=== PATIENT | female | born 1980 | race Caucasian/White ===

== ENCOUNTER 2016-08-26 16:51 | Emergency (ER) | payer OTHER ==
--- NOTE | 2016-08-26 17:32 | EDPHY ---
H & P Stated Complaint: ?allergic reaction,cause unknown;felt throat tightening,used epipen HPI/ROS: HPI CHIEF COMPLAINT: Allergic reaction HISTORY OF PRESENT ILLNESS: This patient very pleasant 35-year-old female she does have significant past medical history for systemic mastocytosis, fibromyalgia, chronic fatigue syndrome, Sangeeta's, PCOS and IBS, she presents to the emergency room after she had sudden onset tingling in her hands, tingling around her mouth, shortness of breath, and abdominal cramping with associated nausea. She tells me this is similar when she has systemic mastocytosis flares. She did give herself an epinephrine shot prior to coming in approximately an hour ago. Since then she has felt better. She denies chest pain or throat closing. Denies active vomiting fever or recent illness. She does tell me that her systemic mastocytosis flares up when he gets very cold out. Past Medical History: Asthma, GERD, IBS, PCOS, lactose intolerance, systemic mastocytosis, fibromyalgia, chronic fatigue syndrome. Social History: Denies use drugs alcohol tobacco products Family History: Noncontributory ROS REVIEW OF SYSTEMS: A comprehensive 10 point review of systems is otherwise negative aside from elements mentioned in the history of present illness. Exam Constitutional appears well, nontoxic triage nursing summary reviewed, vital signs reviewed, awake/alert. Eyes normal conjunctivae and sclera, EOMI, PERRLA. HENT normal inspection, atraumatic, moist mucus membranes, no epistaxis, neck supple/ no meningismus, no raccoon eyes. Respiratory clear to auscultation bilaterally, normal breath sounds, no respiratory distress, no wheezing. Cardiovascular rate normal, regular rhythm, no murmur, no edema, distal pulses normal. Gastrointestinal soft, non-tender, no rebound, no guarding, normal bowel sounds, no distension, no pulsatile mass. Genitourinary no CVA tenderness. Musculoskeletal no midline vertebral tenderness, full range of motion, no calf swelling, no tenderness of extremities, no meningismus, good pulses, neurovascularly intact. Skin pink, warm, & dry, no rash, skin atraumatic. Neurologic awake, alert and oriented x 3, AAOx3, moves all 4 extremities equally, motor intact, sensory intact, CN II-XII intact, normal cerebellar, normal vision, normal speech. Psychiatric normal mood/affect. Heme/Lymph/Immune no lymphadenopathy. Differential Diagnosis: includes but is not limited to in a particular order, mastocytosis flare, allergic reaction, dehydration, electrolyte abnormality, infection, anxiety, panic attack Medical Decision Making: Patient had an IV established obtain blood work, patient had received IV fluid bolus normal saline, IV Benadryl for mastocytosis , and Zofran for nausea will monitor her closely for further signs of further allergic reaction or mastocytosis flare. And we will re-evaluate shortly. Re-evaluation: 1928: re-examination at this time this patient is resting comfortably, there has not been any progression of allergic reaction. She has remained stable here. She has no shortness of breath, throat tightness, nausea vomiting she feels well she is requesting be discharged home. There has been no evidence of anaphylaxis or further reaction. I will allow her to go home she does understand if she gets worsening symptoms tonight she is immediately return to the emergency room this includes nausea vomiting includes shortness of breath wheezing or trouble breathing. Source: Patient - Personal History LMP (Females 10-55): 22-28 Days Ago Current Tetanus Diphtheria and Acellular Pertussis (TDAP): Yes - Medical/Surgical History Other PMH: mastocyctosis (followed at [facility] in [place]) - Social History Smoking Status: Never smoked Constitutional: Initial Vital Signs Temperature (C) 37.2 C 08/26/16 16:58 Heart Rate 100 08/26/16 16:58 Respiratory Rate 18 08/26/16 16:58 Blood Pressure 124/72 H 08/26/16 16:58 O2 Sat (%) 98 08/26/16 16:58 O2 Delivery Mode Room Air Allergies/Adverse Reactions: aspirin Allergy (Severe, Verified 08/26/16 16:58) Anaphylaxis clarithromycin Allergy (Intermediate, Verified 09/29/12 08:36) ibuprofen Allergy (Unknown, Verified 09/29/12 08:36) Home Medications: Medication Instructions Recorded Albuterol [Ventolin Hfa Inhaler] 200 puffs IH 08/26/16 Budesonide/Formoterol 160/4.5 1 puffs IH BID 08/26/16 [Symbicort 160-4.5 Mcg Inh (*)] Ciclesonide [Alvesco] 160 gm IH DAILY 08/26/16 Cromolyn Sodium 200 mg PO QID 08/26/16 Ipratropium [Atrovent Hfa (*)] 12.9 gm IH 08/26/16 Levothyroxine [Synthroid 125 mcg 125 mcg PO DAILY06 08/26/16 (*)] Medical Decision Making - Data Points Laboratory Results: Laboratory Results 08/26/16 17:50 08/26/16 17:50 08/26/16 17:50 WBC 12.52 H 10^3/uL (3.80-9.50) RBC 4.43 10^6/uL (4.18-5.33) Hgb 13.8 g/dL (12.6-16.3) Hct 40.4 % (38.0-47.0) MCV 91.2 fL (81.5-99.8) MCH 31.2 pg (27.9-34.1) MCHC 34.2 g/dL (32.4-36.7) RDW 12.8 % (11.5-15.2) Plt Count 418 H 10^3/uL (150-400) MPV 8.7 fL (8.7-11.7) Neut % (Auto) 78.6 H % (39.3-74.2) Lymph % (Auto) 13.6 L % (15.0-45.0) Johnson % (Auto) 6.8 % (4.5-13.0) Eos % (Auto) 0.2 L % (0.6-7.6) Baso % (Auto) 0.2 L % (0.3-1.7) Nucleat RBC Rel Count 0.0 % (0.0-0.2) Absolute Neuts (auto) 9.85 H 10^3/uL (1.70-6.50) Absolute Lymphs (auto) 1.70 10^3/uL (1.00-3.00) Absolute Monos (auto) 0.85 H 10^3/uL (0.30-0.80) Absolute Eos (auto) 0.02 L 10^3/uL (0.03-0.40) Absolute Basos (auto) 0.02 10^3/uL (0.02-0.10) Absolute Nucleated RBC 0.00 10^3/uL (0-0.01) Immature Gran % 0.6 % (0.0-1.1) Immature Gran # 0.08 10^3/uL (0.00-0.10) Sodium 139 mEq/L (134-144) Potassium 3.8 mEq/L (3.5-5.2) Chloride 105 mEq/L (97-110) Carbon Dioxide 24 mEq/l (22-31) Anion Gap 10 mEq/L (8-16) BUN 10 mg/dL (7-23) Creatinine 0.6 mg/dL (0.6-1.0) Estimated GFR > 60 Glucose 91 mg/dL (70-100) Calcium 9.6 mg/dL (8.5-10.4) Total Bilirubin 0.8 mg/dL (0.1-1.4) Conjugated Bilirubin 0.4 mg/dL (0.0-0.5) Unconjugated Bilirubin 0.4 mg/dL (0.0-1.1) AST 20 IU/L (14-46) ALT 38 IU/L (9-52) Alkaline Phosphatase 45 IU/L (38-126) Total Protein 7.0 g/dL (6.3-8.2) Albumin 4.4 g/dL (3.5-5.0) Lipase 71.0 IU/L (23-300) Beta HCG, Qual NEGATIVE Medications Given: Discontinued Medications Diphenhydramine HCl (Benadryl Injection) 25 mg IVP EDNOW ONE Stop: 08/26/16 17:46 Last Admin: 08/26/16 18:00 Dose: 25 mg Sodium Chloride (Ns) 1,000 mls @ 0 mls/hr IV ONCE ONE PRN Reason: Wide Open Stop: 08/26/16 17:45 Last Admin: 08/26/16 17:59 Dose: 1,000 mls Ondansetron HCl (Zofran) 4 mg IVP EDNOW ONE Stop: 08/26/16 17:45 Last Admin: 08/26/16 18:00 Dose: 4 mg Departure - Departure Disposition: Home, Routine, Self-Care Clinical Impression: Allergic reaction Qualifiers: Encounter type: initial encounter Qualifier Code: (T78.40XA) Allergy, unspecified, initial encounter Condition: Good Instructions: Allergies (ED) Additional Instructions: 1.Stay well hydrated, return to the emergency room if he develops any worsening symptoms questions or concerns. This includes shortness of breath, trouble swallowing, nausea vomiting. Please follow up with her specialist for your systemic Macrocytosis. Referrals: Rui Bah MD [Primary Care Provider] - As per Instructions
[2016-08-26] MEDS ORDERED: NS 1,000 ML IV ONE (17:44)
[2016-08-26] MEDS ORDERED: ONDANSETRON 4 MG/2 ML VIAL IVP ONE (17:44)
[2016-08-26 17:49] VITALS: RESP 16
[2016-08-26 18:15] LABS: % IMMATURE GRANULYOCYTES 0.6 % (0.0-1.1); ABSOLUTE IMMATURE GRANULOCYTES 0.08 10^3/uL (0.00-0.10); ADD DIFF? NO; ADD MORPH? NO; ADD SCAN? NO; ATYPICAL LYMPHOCYTE FLAG 0 (0-99); FRAGMENT RBC FLAG 0 (0-99); HEMATOCRIT 40.4 % (38.0-47.0); HEMOGLOBIN 13.8 g/dL (12.6-16.3); LEFT SHIFT FLG 0 (0-99); LIPEMIA HEMOLYSIS FLAG 90 (0-99); MEAN CELL HEMOGLOBIN 31.2 pg (27.9-34.1); MEAN CELL HEMOGLOBIN CONCENTR. 34.2 g/dL (32.4-36.7); MEAN CELL VOLUME 91.2 fL (81.5-99.8); MEAN PLATELET VOLUME 8.7 fL (8.7-11.7); PLATELET CLUMPS FLAG 0 (0-99); PLATELET COUNT 418 10^3/uL (150-400); RED BLOOD CELL COUNT 4.43 10^6/uL (4.18-5.33); RED CELL DISTRIBUTION WIDTH 12.8 % (11.5-15.2)
[2016-08-26 18:30] LABS: ALANINE AMINOTRANSFERASE 38 IU/L (9-52); ALBUMIN 4.4 g/dL (3.5-5.0); ALKALINE PHOSPHATASE 45 IU/L (38-126); ANION GAP 10 mEq/L (8-16); ASPARTATE AMINOTRANSFERASE 20 IU/L (14-46); BILIRUBIN,TOTAL 0.8 mg/dL (0.1-1.4); BILIRUBIN-CONJUGATED 0.4 mg/dL (0.0-0.5); BILIRUBIN-UNCONJUGATED 0.4 mg/dL (0.0-1.1); CALCIUM 9.6 mg/dL (8.5-10.4); CARBON DIOXIDE 24 mEq/l (22-31); CHLORIDE 105 mEq/L (97-110); CREATININE 0.6 mg/dL (0.6-1.0); GLOMERULAR FILTRATION RATE > 60; GLUCOSE 91 mg/dL (70-100); POTASSIUM 3.8 mEq/L (3.5-5.2); SODIUM 139 mEq/L (134-144)
[2016-08-26 19:39] VITALS: BP 114/75; PULSE 99; TEMP 98.1; O2SAT 96
== END 2016-08-26 19:38 | disposition home or self-care (01) ==
DX: T78.40XA Allergy, unspecified, initial encounter (principal); J45.909 Unspecified asthma, uncomplicated
CPT/HCPCS: 96374; J1200; J2405

== ENCOUNTER 2016-09-16 17:01 | Emergency (ER) | payer OTHER ==
[2016-09-16 17:13] VITALS: RESP 18; TEMP 98.1
--- NOTE | 2016-09-16 17:58 | EDPHY ---
H & P Stated Complaint: Throat feels tight since yesterday;abd cramps/nausea;in nad Time Seen by Provider: 09/16/16 17:18 HPI/ROS: CHIEF COMPLAINT: "I'm in anaphylaxis" HISTORY OF PRESENT ILLNESS: pleasant 35-year-old female past medical history significant for systemic mastocytosis, fibromyalgia, chronic fatigue syndrome, Sangeeta's, PCOS, IBS, in the emergency department stating that last evening she had started to experience anaphylaxis. This was manifest exacerbated by the previous night where she slept poorly and has been in under increasing stress which will cause a mastocytosis flare. She did not use her EpiPen last evening stating that she fell sleep. She notes the continued symptoms today which include bladder spasm, chest pain, dyspnea, Nausea with no vomiting, abdominal pain, throat spasm. This feels similar to when she has systemic mastocytosis flares. She is on daily methylprednisolone. Spoke with the provider at [facility] recommend she seek medical attention PRIMARY CARE PROVIDER: [facility] REVIEW OF SYSTEMS: A ten point review of systems was performed and is negative with the exception of the items mentioned in the HPI PAST MEDICAL & SURGICAL HISTORY: Systemic mastocytosis. Fibromyalgia. Chronic fatigue syndrome. Hashimotos. PCOS. IBS. SOCIAL HISTORY: nonsmoker PHYSICAL EXAM (Prior to examination, patient consented to physical exam, hands were washed and my usual and customary physical exam procedures followed) 1) GENERAL: Well-developed, well-nourished, alert and oriented. Appears to be in no acute distress. She is observed ambulating. She is smiling, shakes my hand, able speak full sentences, no signs of respiratory distress whatsoever. 2) HEAD: Normocephalic, atraumatic 3) HEENT: Pupils equal, round, reactive to light bilaterally. Sclera anicteric. Nasopharynx, oropharynx, clear, no lesions. No tonsillar enlargement. No tonsillar exudate. No trismus no drooling. No hot potato voice. Ears bilaterally with normal tympanic membranes. 4) NECK: Full range of motion, no meningeal signs. 5) LUNGS: Clear auscultation bilaterally, no wheezes, no rhonchi, no retractions. 6) HEART: Regular rate and rhythm, no murmur, no heave, no gallop. 7) ABDOMEN: No guarding, no rebound, no focal tenderness, negative McBurney's, negative Oliver's, negative Rovsing's, negative peritoneal sign, 8) MUSCULOSKELETAL: Moving all extremities, no focal areas of tenderness, no obvious trauma. No peripheral edema or discoloration. 9) BACK: No CVA tenderness, no midline vertebral tenderness, no fluctuance, no step-off, no obvious trauma, no visual or palpable abnormality. 10) SKIN: No rash, no petechiae. No urticaria. No rash. 11) Psychiatric: Patient is oriented X 3, there is no agitation. DIFFERENTIAL DIAGNOSIS: in no particular order including but not limited to mastocytosis flare, anaphylaxis, urticaria - Personal History LMP (Females 10-55): 8-14 Days Ago Current Tetanus Diphtheria and Acellular Pertussis (TDAP): Yes - Medical/Surgical History Other PMH: mastocyctosis (followed at [facility] in [place]). fibromyalgia, chronic fatigue syndrome, Hashimotos,. IBS,GERD, lactose intolerance - Social History Smoking Status: Never smoked Constitutional: Initial Vital Signs Temperature (C) 36.7 C 09/16/16 17:10 Heart Rate 84 09/16/16 17:10 Respiratory Rate 18 09/16/16 17:10 Blood Pressure 114/75 09/16/16 17:10 O2 Sat (%) 99 09/16/16 17:10 O2 Delivery Mode Room Air Allergies/Adverse Reactions: aspirin Allergy (Severe, Verified 09/16/16 17:10) Anaphylaxis clarithromycin Allergy (Intermediate, Verified 09/16/16 17:10) ibuprofen Allergy (Unknown, Verified 09/16/16 17:10) Home Medications: Medication Instructions Recorded Albuterol [Ventolin Hfa Inhaler] 200 puffs IH 08/26/16 Budesonide/Formoterol 160/4.5 1 puffs IH BID 08/26/16 [Symbicort 160-4.5 Mcg Inh (*)] Ciclesonide [Alvesco] 160 gm IH DAILY 08/26/16 Cromolyn Sodium 200 mg PO QID 08/26/16 Ipratropium [Atrovent Hfa (*)] 12.9 gm IH 08/26/16 Levothyroxine [Synthroid 125 mcg 125 mcg PO DAILY06 08/26/16 (*)] Ciclesonide [Alvesco] 80 gm IH DAILY 09/16/16 methylPREDNISolone [Medrol 4mg (*)] 16 mg PO 09/16/16 Medical Decision Making ED Course/Re-evaluation: 5:50 p.m.: I have reviewed her old medical records. 7:15 p.m.: Patient re-evaluated after being given Solu-Medrol, H1 H2 blockers. At this time she is sleeping, easily woken. States that she is feeling better overall. She does note subjective sensation of throat swelling. On exam she has a normal voice, no hot potato voice, no trismus no drooling, no tonsillar glossal enlargement. No red flags on objective examination findings. We discussed the indications risks benefits of providing epinephrine. given that she objectively appears well and is feeling overall improvement I am hesitant to provided dose of epinephrine at this time as as it is not completely clear to me that the benefits outweigh the risks. I discussed this with the patient she is in agreement. She has an EpiPen prescription at home and I have recommend she have a low threshold for using that should she develop return of symptoms. She has been provided my usual and customary allergic reaction precautions and recommend she contact and see her provider [facility]. - Data Points Laboratory Results: Laboratory Results 09/16/16 17:00 09/16/16 17:00 09/16/16 09/16/16 09/16/16 17:00 17:00 17:00 WBC 9.82 10^3/uL H 10^3/uL (3.80-9.50) RBC 4.39 10^6/uL 10^6/uL (4.18-5.33) Hgb 14.1 g/dL g/dL (12.6-16.3) Hct 42.2 % % (38.0-47.0) MCV 96.1 fL fL (81.5-99.8) MCH 32.1 pg pg (27.9-34.1) MCHC 33.4 g/dL g/dL (32.4-36.7) RDW 12.8 % % (11.5-15.2) Plt Count 404 10^3/uL H 10^3/uL (150-400) MPV 8.7 fL fL (8.7-11.7) Neut % (Auto) 75.5 % H % (39.3-74.2) Lymph % (Auto) 16.9 % % (15.0-45.0) [place] % (Auto) 6.7 % % (4.5-13.0) Eos % (Auto) 0.1 % L % (0.6-7.6) Baso % (Auto) 0.1 % L % (0.3-1.7) Nucleat RBC Rel Count 0.0 % % (0.0-0.2) Absolute Neuts (auto) 7.41 10^3/uL H 10^3/uL (1.70-6.50) Absolute Lymphs (auto) 1.66 10^3/uL 10^3/uL (1.00-3.00) Absolute Monos (auto) 0.66 10^3/uL 10^3/uL (0.30-0.80) Absolute Eos (auto) 0.01 10^3/uL L 10^3/uL (0.03-0.40) Absolute Basos (auto) 0.01 10^3/uL L 10^3/uL (0.02-0.10) Absolute Nucleated RBC 0.00 10^3/uL 10^3/uL (0-0.01) Immature Gran % 0.7 % % (0.0-1.1) Immature Gran # 0.07 10^3/uL 10^3/uL (0.00-0.10) Sodium 139 mEq/L mEq/L (134-144) Potassium 4.1 mEq/L mEq/L (3.5-5.2) Chloride 101 mEq/L mEq/L (97-110) Carbon Dioxide 30 mEq/l mEq/l (22-31) Anion Gap 8 mEq/L mEq/L (8-16) BUN 9 mg/dL mg/dL (7-23) Creatinine 0.6 mg/dL mg/dL (0.6-1.0) Estimated GFR > 60 Glucose 78 mg/dL mg/dL (70-100) Calcium 9.0 mg/dL mg/dL (8.5-10.4) Beta HCG, Qual NEGATIVE Medications Given: Discontinued Medications Diphenhydramine HCl (Benadryl Injection) 25 mg IVP EDNOW ONE Stop: 09/16/16 18:00 Last Admin: 09/16/16 18:21 Dose: 25 mg Famotidine (Pepcid) 20 mg IVP EDNOW ONE Stop: 09/16/16 18:29 Last Admin: 09/16/16 18:30 Dose: 20 mg Sodium Chloride (Ns) 1,000 mls @ 0 mls/hr IV ONCE ONE PRN Reason: Wide Open Stop: 09/16/16 18:00 Last Admin: 09/16/16 18:21 Dose: 1,000 mls Methylprednisolone Sodium Succinate (Solu-Medrol) 125 mg IVP EDNOW ONE Stop: 09/16/16 18:01 Last Admin: 09/16/16 18:21 Dose: 125 mg Ondansetron HCl (Zofran) 4 mg IVP EDNOW ONE Stop: 09/16/16 18:00 Last Admin: 09/16/16 18:22 Dose: 4 mg Ranitidine HCl (Zantac) 50 mg IVP EDNOW ONE Stop: 09/16/16 18:00 Last Admin: 09/16/16 18:22 Dose: Not Given Departure - Departure Disposition: Home, Routine, Self-Care Clinical Impression: Mastocytosis Condition: Good Instructions: Allergies (ED), General Allergic Reaction (ED) Additional Instructions: If you develop allergy reaction symptoms use your EpiPen and call 911. Referrals: Rui Bah MD [Primary Care Provider] - 2-3 days, call for appt. Contact, your provider [facility] tomorrow [Other] - As per Instructions
[2016-09-16] MEDS ORDERED: ONDANSETRON 4 MG/2 ML VIAL IVP ONE (17:59)
[2016-09-16] MEDS ORDERED: RANITIDINE 50 MG/2 ML VIAL IVP ONE (17:59)
[2016-09-16] MEDS ORDERED: NS 1,000 ML IV ONE (17:59)
[2016-09-16] MEDS ORDERED: methylPREDNISolone SOD SUCC 125 MG/2 ML VIAL IVP ONE (18:00)
[2016-09-16] MEDS ORDERED: FAMOTIDINE 20 MG/2 ML SDV ONE (18:13)
[2016-09-16 18:27] LABS: % IMMATURE GRANULYOCYTES 0.7 % (0.0-1.1); ABSOLUTE IMMATURE GRANULOCYTES 0.07 10^3/uL (0.00-0.10); ADD DIFF? NO; ADD MORPH? NO; ADD SCAN? NO; ATYPICAL LYMPHOCYTE FLAG 0 (0-99); FRAGMENT RBC FLAG 0 (0-99); HEMATOCRIT 42.2 % (38.0-47.0); HEMOGLOBIN 14.1 g/dL (12.6-16.3); LEFT SHIFT FLG 0 (0-99); LIPEMIA HEMOLYSIS FLAG 80 (0-99); MEAN CELL HEMOGLOBIN 32.1 pg (27.9-34.1); MEAN CELL HEMOGLOBIN CONCENTR. 33.4 g/dL (32.4-36.7); MEAN CELL VOLUME 96.1 fL (81.5-99.8); MEAN PLATELET VOLUME 8.7 fL (8.7-11.7); PLATELET CLUMPS FLAG 0 (0-99); PLATELET COUNT 404 10^3/uL (150-400); RED BLOOD CELL COUNT 4.39 10^6/uL (4.18-5.33); RED CELL DISTRIBUTION WIDTH 12.8 % (11.5-15.2)
[2016-09-16] MEDS ORDERED: FAMOTIDINE 20 MG/2 ML SDV IVP ONE (18:28)
[2016-09-16 18:31] LABS: ANION GAP 8 mEq/L (8-16); CARBON DIOXIDE 30 mEq/l (22-31); CHLORIDE 101 mEq/L (97-110); CREATININE 0.6 mg/dL (0.6-1.0); GLOMERULAR FILTRATION RATE > 60; GLUCOSE 78 mg/dL (70-100); POTASSIUM 4.1 mEq/L (3.5-5.2); SODIUM 139 mEq/L (134-144)
[2016-09-16 19:37] VITALS: BP 102/62; PULSE 72; O2SAT 96
== END 2016-09-16 19:35 | disposition home or self-care (01) ==
DX: D47.0 Mast cell neoplasms of uncertain behavior (principal)
CPT/HCPCS: 96374; J1200; J2405; J2780

== ENCOUNTER 2016-10-27 00:30 | Emergency (ER) | payer OTHER ==
[2016-10-27 00:37] VITALS: TEMP 98.2
[2016-10-27] MEDS ORDERED: ONDANSETRON 4 MG/2 ML VIAL ONE (00:50)
[2016-10-27] MEDS ORDERED: FAMOTIDINE 20 MG/NACL 50 ML IV ONE (02:06)
[2016-10-27] MEDS ORDERED: methylPREDNISolone SOD SUCC 125 MG/2 ML VIAL IVP ONE (02:07)
--- NOTE | 2016-10-27 02:12 | EDPHY ---
H & P Stated Complaint: SYSTEMIC MASTOCYTOSIS REACTION PER PT. 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 She describes tingling of her mouth, tongue, fingers and toes. She reports chest pain with palpitations associated with nausea. She felt some wheezing as well. She administered her home oxygen tonight when her symptoms became worse and used her EpiPen. She did not feel much better, so comes into the hospital. She has also been taking Mariam and Benadryl at home over the last few days. She has a history of systemic mastocytosis which was diagnosed about a year ago based on bone marrow biopsy. She is followed at [facility] for this.. REVIEW OF SYSTEMS Constitutional: No fever, no chills. Eyes: No discharge. ENT: No sore throat. Cardiovascular: No chest pain, no palpitations. Respiratory: No cough, no shortness of breath. Gastrointestinal: No abdominal pain, no vomiting. Genitourinary: No hematuria. Musculoskeletal: No back pain. Skin: No rashes. Neurological: No headache. PMHx: Systemic mastocytosis, chronic fatigue syndrome, fibromyalgia, IBS Soc Hx: Lives at home with her and kid PHYSICAL General Appearance: Alert, no distress Eyes: Pupils equal and round no pallor or injection ENT, Mouth: Mucous membranes moist Respiratory: There are no retractions, lungs are clear to auscultation Cardiovascular: Regular rate and rhythm Gastrointestinal: Abdomen is soft and non-tender, no masses, bowel sounds normal Neurological: A&O, moves all extremities Skin: Warm and dry, no rashes Musculoskeletal: Neck is supple non tender Extremities: symmetrical, full range of motion Psychiatric: Patient is oriented X 3, there is no agitation Source: Patient Exam Limitations: No limitations - Personal History Current Tetanus/Diphtheria Vaccine: Yes Current Tetanus Diphtheria and Acellular Pertussis (TDAP): Yes - Medical/Surgical History Hx Asthma: No Hx Chronic Respiratory Disease: No Hx Diabetes: No Hx Cardiac Disease: No Hx Renal Disease: No Hx Cirrhosis: No Hx Alcoholism: No Hx HIV/AIDS: No Hx Splenectomy or Spleen Trauma: No Other PMH: mastocyctosis (followed at [facility] in [place]). fibromyalgia, chronic fatigue syndrome, Hashimotos,. IBS,GERD, lactose intolerance - Social History Smoking Status: Never smoked Constitutional: Initial Vital Signs Temperature (C) 36.8 C 10/27/16 00:31 Heart Rate 112 H 10/27/16 00:31 Respiratory Rate 18 10/27/16 00:31 Blood Pressure 131/82 H 10/27/16 00:31 O2 Sat (%) 95 10/27/16 00:31 O2 Delivery Mode Room Air Allergies/Adverse Reactions: aspirin Allergy (Severe, Verified 10/27/16 00:36) Anaphylaxis clarithromycin Allergy (Intermediate, Verified 10/27/16 00:36) ibuprofen Allergy (Unknown, Verified 10/27/16 00:36) Home Medications: Medication Instructions Recorded Albuterol [Ventolin Hfa Inhaler] 200 puffs IH 08/26/16 Budesonide/Formoterol 160/4.5 1 puffs IH BID 08/26/16 [Symbicort 160-4.5 Mcg Inh (*)] Ciclesonide [Alvesco] 160 gm IH DAILY 08/26/16 Cromolyn Sodium 200 mg PO QID 08/26/16 Ipratropium [Atrovent Hfa (*)] 12.9 gm IH 08/26/16 Levothyroxine [Synthroid 125 mcg 125 mcg PO DAILY06 08/26/16 (*)] Ciclesonide [Alvesco] 80 gm IH DAILY 09/16/16 methylPREDNISolone [Medrol 4mg (*)] 16 mg PO 09/16/16 Medical Decision Making Differential Diagnosis: This is a 35-year-old female with a diagnosis of systemic mastocytosis based on bone marrow biopsy, followed at [facility], who presents from home with concern for anaphylaxis after several days of symptoms which became worse tonight. Her predominant symptoms are tingling sensation throughout her body, palpitations, nausea. On exam, she has normal vital signs, has no urticaria or skin lesions, has no posterior pharyngeal edema or tongue swelling , has no wheezing on exam and really looks quite well. Given her report of the symptoms, I will treat her with Solu-Medrol, H1 and H2 blockers. She received these medications and she was in the emergency room on February 22nd, and these helped her symptoms significantly. In the emergency room, the patient received the above medications and felt better. She was observed for several hours with no recurrence of her symptoms. She will be discharged from the emergency room in good condition. - Data Points Medications Given: Discontinued Medications Diphenhydramine HCl (Benadryl Injection) 25 mg IVP EDNOW ONE Stop: 10/27/16 02:08 Last Admin: 10/27/16 02:28 Dose: 25 mg Famotidine/Sodium Chloride (Pepcid 20 Mg (Premix)) 50 mls @ 200 mls/hr IV EDNOW ONE Stop: 10/27/16 02:20 Last Admin: 10/27/16 02:28 Dose: 50 mls Methylprednisolone Sodium Succinate (Solu-Medrol) 125 mg IVP EDNOW ONE Stop: 10/27/16 02:08 Last Admin: 10/27/16 02:29 Dose: 125 mg Departure - Departure Disposition: Home, Routine, Self-Care Clinical Impression: Systemic mastocytosis Condition: Good Instructions: Anaphylaxis (ED) Additional Instructions: Please return to the emergency room if your worse in any way. Referrals: Rui Bah MD [Primary Care Provider] - As per Instructions
[2016-10-27] MEDS ORDERED: methylPREDNISolone SOD SUCC 125 MG/2 ML VIAL ONE (02:17)
[2016-10-27 02:46] VITALS: O2SAT 96
[2016-10-27 04:37] VITALS: BP 118/64; PULSE 81; RESP 16
== END 2016-10-27 04:37 | disposition home or self-care (01) ==
DX: D47.0 Mast cell neoplasms of uncertain behavior (principal)
CPT/HCPCS: 96374; J1200; J2405

== ENCOUNTER → 2017-09-07 | Outpatient (CLI) | payer OTHER | LOC: FIMAGING 16:39 | PROVIDERS: ATTEND Allergy & Immunology Allergy | DX: R05 Cough (principal); R07.9 Chest pain, unspecified ==

== ENCOUNTER 2017-10-05 13:30 | Emergency (ER) | payer OTHER ==
[2017-10-05 13:40] VITALS: RESP 18
--- NOTE | 2017-10-05 13:55 | CPEKG ---
Heart Rate: 84 RR Interval: 714 P-R Interval: 128 QRSD Interval: 78 QT Interval: 348 QTC Interval: 412 P Carmichaels: 64 QRS Carmichaels: 50 T Wave Carmichaels: 52 EKG Severity - NORMAL ECG - EKG Impression: SINUS RHYTHM Electronically Signed By: Cornelio Kidd 05-Oct-2017 15:56:09
--- NOTE | 2017-10-05 14:13 | EDPHY ---
H & P Stated Complaint: since pt had diff breathing, hx of systemic mastocytosis Time Seen by Provider: 10/05/17 13:52 HPI/ROS: CHIEF COMPLAINT: Chest pain, multiple symptoms which patient reports are from an exacerbation of her mast cell disorder HISTORY OF PRESENT ILLNESS: The patient is referred to the ED for evaluation of chest pain. The patient reportedly has a history of mast cell dysfunction is on a number of outpatient medications. She reports that she has been having symptoms of "anaphylaxis" since . She has been using Solu-Medrol, Symbicort, duo nebs, cromolyn, Atrovent and Ventolin at home. The patient is also administered an EpiPen. She is using Zofran and supplemental oxygen at night. Patient reports she has had a several day history of some sharp left chest pain. She denies any asymmetric calf pain or swelling. She denies fever or productive cough. The patient denies any history of fall or trauma. She denies additional acute complaints. REVIEW OF SYSTEMS: A comprehensive 10 point review of systems is otherwise negative aside from elements mentioned in the history of present illness. Source: Patient - Personal History LMP (Females 10-55): 15-21 Days Ago Current Tetanus Diphtheria and Acellular Pertussis (TDAP): Yes - Medical/Surgical History Hx Asthma: No Hx Chronic Respiratory Disease: No Hx Diabetes: No Hx Cardiac Disease: No Hx Renal Disease: No Hx Cirrhosis: No Hx Alcoholism: No Hx HIV/AIDS: No Hx Splenectomy or Spleen Trauma: No Other PMH: mastocyctosis (followed at [facility] in [place]). fibromyalgia, chronic fatigue syndrome, Hashimotos,. IBS,GERD, lactose intolerance - Social History Smoking Status: Never smoked - Physical Exam Exam: General Appearance: Alert, no distress Eyes: Pupils equal and round no pallor or injection ENT, Mouth: Mucous membranes moist Respiratory: There are no retractions, lungs are clear to auscultation Cardiovascular: Regular rate and rhythm Gastrointestinal: Abdomen is soft and nontender, no masses, bowel sounds normal Neurological: 5/5 strength noted all 4 extremities Skin: Warm and dry, no rashes Musculoskeletal: Neck is supple nontender Extremities: symmetrical, full range of motion Constitutional: Initial Vital Signs Temperature (C) 37.1 C 10/05/17 13:37 Heart Rate 103 H 10/05/17 13:37 Respiratory Rate 18 10/05/17 13:37 Blood Pressure 125/97 H 10/05/17 13:37 O2 Sat (%) 96 10/05/17 13:37 O2 Delivery Mode Room Air Allergies/Adverse Reactions: aspirin Allergy (Severe, Verified 10/27/16 00:36) Anaphylaxis clarithromycin Allergy (Intermediate, Verified 10/27/16 00:36) ibuprofen Allergy (Unknown, Verified 10/27/16 00:36) cocoa [chocolate] Allergy (Verified 10/05/17 13:34) kirit Allergy (Verified 10/05/17 13:34) Home Medications: Medication Instructions Recorded Albuterol [Ventolin Hfa Inhaler] 200 puffs IH 08/26/16 Budesonide/Formoterol 160/4.5 1 puffs IH BID 08/26/16 [Symbicort 160-4.5 Mcg Inh (*)] Ciclesonide [Alvesco] 160 gm IH DAILY 08/26/16 Cromolyn Sodium 200 mg PO QID 08/26/16 Ipratropium [Atrovent Hfa (*)] 12.9 gm IH 08/26/16 Levothyroxine [Synthroid 125 mcg 125 mcg PO DAILY06 08/26/16 (*)] Ciclesonide [Alvesco] 80 gm IH DAILY 09/16/16 methylPREDNISolone [Medrol 4mg (*)] 16 mg PO 09/16/16 Ketotifen Fumarate 10/05/17 Ranitidine HCl 10/05/17 Zofran 10/05/17 Medical Decision Making - Diagnostics EKG Interpretation: EKG: Complete interpretation has been separately recorded in the [facility] archive. Summary impression: Sinus rhythm, rate 84, no ischemic changes noted Imaging Results: Imaging Impressions Chest X-Ray 10/05/17 14:30 Impression: Suspect airways disease. ED Course/Re-evaluation: The patient presents to the ED with multiple complaints in the setting of a history of mast cell dysfunction. She arrives to the emergency department without any evidence of obvious anaphylaxis. The patient's EKG demonstrates no evidence of ischemia. The patient's vital signs are stable. The patient's D- dimer is negative which I feel adequately excludes pulmonary embolism. The patient's troponin is normal as are her laboratory studies. The patient was placed on a cardiac rehabilitation specialist upon arrival. She was monitored in the emergency department without any arrhythmia or vital sign abnormality. This point time I doubt the patient is having a life-threatening cause of chest pain and certainly has no evidence of a significant anaphylactic reaction. The patient has epinephrine at home. 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 She is advised to return to the ED for markedly worsening symptoms or other concerns. Differential Diagnosis: Differential diagnosis considered includes anaphylaxis, pulmonary embolism, pneumonia, pneumothorax, arrhythmia, anemia, myocardial infarction - Data Points Laboratory Results: Laboratory Results 10/05/17 13:50 10/05/17 13:50 10/05/17 10/05/17 10/05/17 13:50 13:50 13:50 WBC 10.42 10^3/uL H 10^3/uL (3.80-9.50) RBC 4.42 10^6/uL 10^6/uL (4.18-5.33) Hgb 14.4 g/dL g/dL (12.6-16.3) Hct 42.4 % % (38.0-47.0) MCV 95.9 fL fL (81.5-99.8) MCH 32.6 pg pg (27.9-34.1) MCHC 34.0 g/dL g/dL (32.4-36.7) RDW 13.9 % % (11.5-15.2) Plt Count 363 10^3/uL 10^3/uL (150-400) MPV 8.9 fL fL (8.7-11.7) Neut % (Auto) 82.7 % H % (39.3-74.2) Lymph % (Auto) 10.2 % L % (15.0-45.0) [place] % (Auto) 4.2 % L % (4.5-13.0) Eos % (Auto) 0.1 % L % (0.6-7.6) Baso % (Auto) 0.4 % % (0.3-1.7) Nucleat RBC Rel Count 0.0 % % (0.0-0.2) Absolute Neuts (auto) 8.62 10^3/uL H 10^3/uL (1.70-6.50) Absolute Lymphs (auto) 1.06 10^3/uL 10^3/uL (1.00-3.00) Absolute Monos (auto) 0.44 10^3/uL 10^3/uL (0.30-0.80) Absolute Eos (auto) 0.01 10^3/uL L 10^3/uL (0.03-0.40) Absolute Basos (auto) 0.04 10^3/uL 10^3/uL (0.02-0.10) Absolute Nucleated RBC 0.00 10^3/uL 10^3/uL (0-0.01) Immature Gran % 2.4 % H % (0.0-1.1) Immature Gran # 0.25 10^3/uL H 10^3/uL (0.00-0.10) D-Dimer < 0.27 ug/mLFEU ug/mLFEU (0.00-0.50) Sodium 138 mEq/L mEq/L (135-145) Potassium 4.1 mEq/L mEq/L (3.5-5.2) Chloride 102 mEq/L mEq/L (97-110) Carbon Dioxide 28 mEq/l mEq/l (22-31) Anion Gap 8 mEq/L mEq/L (8-16) BUN 11 mg/dL mg/dL (7-23) Creatinine 0.6 mg/dL mg/dL (0.6-1.0) Estimated GFR > 60 Glucose 86 mg/dL mg/dL (70-100) Calcium 9.5 mg/dL mg/dL (8.5-10.4) Troponin I < 0.012 ng/mL ng/mL (0.000-0.034) Departure - Departure Disposition: Home, Routine, Self-Care Clinical Impression: Mast cell disorder, Chest pain Condition: Good Instructions: Chest Pain (ED) Additional Instructions: 1. The workup in the emergency department today demonstrates no evidence of an arrhythmia, heart condition, blood clot, collapsed lung or pneumonia. 2. Please continue your regular medications and follow up with Dr. Torres as needed. 3. Please return to the ED for markedly worsening symptoms or other concerns. Referrals: Debora Torres MD [[facility] [place] Primary Care Provider] - As per Instructions
[2017-10-05 14:40] LABS: PLATELET COUNT 363 10^3/uL (150-400)
[2017-10-05 16:07] VITALS: BP 118/74; PULSE 100; TEMP 98.1; O2SAT 97
== END 2017-10-05 15:55 | disposition home or self-care (01) ==
DX: R07.9 Chest pain, unspecified (principal); D89.40 Mast cell activation, unspecified

== ENCOUNTER → 2018-07-22 | Outpatient (CLI) | payer OTHER | LOC: FIMAGING 08:38 | PROVIDERS: ATTEND Allergy & Immunology Allergy | DX: R10.9 Unspecified abdominal pain (principal) ==

== ENCOUNTER → 2018-07-28 | Outpatient (CLI) | payer OTHER | LOC: BMCIMAGING 15:54 | PROVIDERS: ATTEND Family Medicine | DX: M84.88 Other disorders of continuity of bone, other site (principal) ==

== ENCOUNTER → 2018-08-16 | Outpatient (CLI) | payer OTHER | LOC: BMCIMAGING 12:13 | PROVIDERS: ATTEND Internal Medicine | DX: S22.060A Wedge compression fracture of T7-T8 vertebra, initial encounter for closed fracture (principal); S32.020A Wedge compression fracture of second lumbar vertebra, initial encounter for closed fracture; S32.030A Wedge compression fracture of third lumbar vertebra, initial encounter for closed fracture; S32.040A Wedge compression fracture of fourth lumbar vertebra, initial encounter for closed fracture; S32.050A Wedge compression fracture of fifth lumbar vertebra, initial encounter for closed fracture; M53.3 Sacrococcygeal disorders, not elsewhere classified; M47.814 Spondylosis without myelopathy or radiculopathy, thoracic region; M81.0 Age-related osteoporosis without current pathological fracture ==

== ENCOUNTER → 2018-09-20 | Outpatient (CLI) | payer OTHER | LOC: BMCIMAGING 13:38 | PROVIDERS: ATTEND Internal Medicine | DX: R06.02 Shortness of breath (principal) ==

== ENCOUNTER → 2018-10-19 | Outpatient (CLI) | payer OTHER | LOC: FIMAGING 13:10 | PROVIDERS: ATTEND Orthopaedic Surgery | DX: R18.8 Other ascites (principal); J98.4 Other disorders of lung; K59.00 Constipation, unspecified; S32.501D Unspecified fracture of right pubis, subsequent encounter for fracture with routine healing; S22.060D Wedge compression fracture of T7-T8 vertebra, subsequent encounter for fracture with routine healing; S32.020D Wedge compression fracture of second lumbar vertebra, subsequent encounter for fracture with routine healing ==

== ENCOUNTER → 2018-10-27 | Outpatient (CLI) | payer OTHER | LOC: FIMAGING 18:19 | DX: M54.2 Cervicalgia (principal) ==

== ENCOUNTER → 2018-11-11 | Outpatient (CLI) | payer OTHER | LOC: FIMAGING 07:26 | PROVIDERS: ATTEND Allergy & Immunology Allergy | DX: K76.0 Fatty (change of) liver, not elsewhere classified (principal) ==

== ENCOUNTER → 2018-11-15 | Day surgery (SDC) | payer OTHER | END | disposition still patient (30) | LOC: FIMAGING 08:04 | PROVIDERS: ATTEND Radiology Diagnostic Radiology | PROC: B54MZZA Ultrasonography of Right Upper Extremity Veins, Guidance (ICD-10-PCS; principal; 2018-11-15) | PROC: 02HV33Z Insertion of Infusion Device into Superior Vena Cava, Percutaneous Approach (ICD-10-PCS; principal; 2018-11-15) | PROC: 0JH60XZ Insertion of Tunneled Vascular Access Device into Chest Subcutaneous Tissue and Fascia, Open Approach (ICD-10-PCS; principal; 2018-11-15) | PROC: B51M1ZA Fluoroscopy of Right Upper Extremity Veins using Low Osmolar Contrast, Guidance (ICD-10-PCS; principal; 2018-11-15) | DX: Z79.2 Long term (current) use of antibiotics (principal) | CPT/HCPCS: 36573; 76937; 77001; C1751 ==

== ENCOUNTER → 2018-12-26 | Outpatient (CLI) | payer OTHER | LOC: FIMAGING 16:13 ==

== ENCOUNTER → 2018-12-28 | Day surgery (SDC) | payer OTHER | LOC: FIMAGING 08:55 ==

== ENCOUNTER → 2019-01-04 | Outpatient (CLI) | payer OTHER | LOC: BMCIMAGING 11:54 ==